=== PATIENT | female | born 1990 | race African-American/Black ===

== ENCOUNTER 2017-03-15 01:09 | Emergency (ER) | payer MEDICAID ==
[~2017-03-15] VITALS: Ht 170.2 cm; Wt 77.1 kg
[~2017-03-15 01:09] MED LIST: ALBUPOW26; FLUT250M2
[2017-03-15 01:18] VITALS: BP 131/78
== END 2017-03-15 02:49 | disposition left against medical advice (07) ==
LOC: ER 01:09
DX: R10.32 Left lower quadrant pain (principal); J45.909 Unspecified asthma, uncomplicated; Z53.21 Procedure and treatment not carried out due to patient leaving prior to being seen by health care provider

== ENCOUNTER 2018-11-17 17:12 | Emergency (ER) | payer MEDICAID ==
[~2018-11-17] VITALS: Ht 170.2 cm; Wt 89.4 kg
[2018-11-17 17:43] VITALS: BP 131/84
[2018-11-17 18:57] LABS: Urine Bacteria NONE SEEN /hpf (None Seen); Urine Blood Negative /uL (Negative); Urine Specific Gravity 1.014 (1.001-1.035); Urine WBC 2 /hpf (0 - 5)
== END 2018-11-17 21:08 | disposition home or self-care (01) ==
LOC: ER 17:15
DX: J06.9 Acute upper respiratory infection, unspecified (principal); N39.0 Urinary tract infection, site not specified; R51 Headache
CPT/HCPCS: 81001; 81025